=== PATIENT | female | born 1995 | race Two or more races ===

== ENCOUNTER 2021-09-28 03:24 | Inpatient (IN) | payer OTHER ==
[~2021-09-28] VITALS: Ht 167.6 cm; Wt 77.6 kg
[2021-09-28] MEDS ORDERED: PRENATAL TABLE1 EAC1 PO (03:28)
== END 2021-09-30 14:10 | disposition home or self-care (01) | DRG 807 ==
LOC: OBS/DEL 03:24 → LDR 09:19 → OB/GYN 20:49
PROVIDERS: ADMIT Specialist; ATTEND Specialist
PROC: 10E0XZZ Delivery of Products of Conception, External Approach (ICD-10-PCS; principal; 2021-09-28)
PROC: 0W8NXZZ Division of Female Perineum, External Approach (ICD-10-PCS; 2021-09-28)
PROC: 4A1HXCZ Monitoring of Products of Conception, Cardiac Rate, External Approach (ICD-10-PCS; 2021-09-28)
DX: O80 Encounter for full-term uncomplicated delivery (principal); Z37.0 Single live birth; Z3A.38 38 weeks gestation of pregnancy; Z20.822 Contact with and (suspected) exposure to COVID-19